=== PATIENT | female | born 1945 | race Caucasian/White ===

== ENCOUNTER → 2023-01-06 | Emergency (ER) | payer MEDICARE, OTHER ==
[~2023-01-06] VITALS: Ht 157.5 cm; Wt 81.6 kg
[~2023-01-06] MED LIST: CEFP200T14 PO; CEFTRIAXONE 1GM BAG (ER ONLY) 1 GM/50 ML PIGGYBACK IV ONE; CEFTRIAXONE 1GM BAG (ER ONLY) 50 ML IV ONE; CT SWABBABLE VALVE TRANS SET 1 EA INFUS.SET MC ONE; IOHEXOL-300 100 ML VIAL IV ONE; IV NS 0.9% 1,000 ML BAG IV ONE; IV NS 0.9% 250 ML IV ONE; MORPHINE SULFATE INJ 2 MG/ML DISP.SYRIN IV ONE; MORPHINE SULFATE INJ 4 MG/ML DISP.SYRIN ONE; ONDANSETRON HCL/PF 4 MG/2 ML VIAL IVP ONE; ONDANSETRON HCL/PF 4 MG/2 ML VIAL ONE
--- NOTE | 2023-01-06 04:55 | NUR ---
PT PROVIDED WITH WARM BLANKET FOR COMFORT.
--- NOTE | 2023-01-06 05:01 | NUR ---
BIBDAUGHTER FROM HOME. GEN ABD PAIN W/ NAUSEA ND VOMITING X2 DAYS. PT AAOX4, PLACED IN BED, VITALS CHECKED.
--- NOTE | 2023-01-06 05:01 | NUR ---
BLOOD DRAWN AND SENT TO LAB
--- NOTE | 2023-01-06 05:08 | NUR ---
URINE SPECIMEN COLLECTED AND SENT TO LAB.
--- NOTE | 2023-01-06 06:11 | NUR ---
CALLED LAB TO [employer], SPOKE TO JONY. HE SAID THERE IS NO KNITTED CLOTH EXAMINER TO [employer] SPECIM[employer]. TOLD JONY THAT WE NEED TO RUN THE BLOODS BECAUSE CT SCAN CANNOT BE PERFORM WITHOUT KNOWING THE BUN/CREA RESULT.
[2023-01-06 06:42] LABS: BACTERIA,URINE Moderate /HPF (None Seen); BILIRUBIN,URINE NEGATIVE (NEGATIVE); COLOR,URINE YELLOW (YELLOW); LEUKOCYTE ESTERASE ,URINE 2+ (NEGATIVE); NITRITE, URINE NEGATIVE (NEGATIVE); PROTEIN,URINE 2+ mg/dl (NEGATIVE); SQUAMOUS EPITHELIAL CELL,UR Few /HPF (None Seen); UGLUCOSE 2+ mg/dL (NEGATIVE); WBC,URINE 21-50 /HPF (0-3)
[2023-01-06 06:43] LABS: BASOPHILS # (AUTO) 0.1 K/uL (0.0-0.2); BASOPHILS % (AUTO) 0.7 % (0.0-2.0); HEMATOCRIT 39 % (33-45); HEMOGLOBIN 12.8 g/dL (11.5-14.8); LYMPHOCYTES # (AUTO) 0.4 K/uL (0.8-4.8); LYMPHOCYTES % (AUTO) 3.2 % (20.0-44.0); MEAN CORPUSCULAR HGB CONC 32 g/dl (31.0-36.0); MEAN CORPUSCULAR VOLUME 89 fL (82-100); MONOCYTES # (AUTO) 0.2 K/uL (0.1-1.30); MONOCYTES % (AUTO) 1.3 % (2.0-12.0); NEUTROPHILS % (AUTO) 94.8 % (43.0-81.0); PLATELET COUNT (AUTO) 226 K/uL (150-450); RED BLOOD CELL COUNT(AUTO) 4.42 MIL/uL (4.0-5.2); WHITE BLOOD COUNT (AUTO) 11.6 K/uL (4.3-11.0)
[2023-01-06 06:51] LABS: CALCIUM, SERUM 9.4 mg/dL (8.5-10.1); CREATININE 0.8 mg/dL (0.6-1.3); POTASSIUM 3.2 mmol/L (3.5-5.1)
[2023-01-06 07:05] LABS: ALBUMIN 3.4 g/dL (3.4-5.0); BILIRUBIN,DIRECT 0.4 mg/dL (0.0-0.2); BILIRUBIN,TOTAL 0.9 mg/dL (0.2-1.0); TOTAL PROTEIN, SERUM 8.2 g/dL (6.4-8.2)
[2023-01-06 09:54] VITALS: BP 109/54; TEMP 97.6
== END | disposition home or self-care (01) ==
LOC: ER 04:44
DX: R10.84 Generalized abdominal pain (principal); R11.2 Nausea with vomiting, unspecified; I10 Essential (primary) hypertension; E11.9 Type 2 diabetes mellitus without complications
CPT/HCPCS: 99285; 74177; 96365; 71045; 96375; 96361; 85025; 80048; 87086; 83605; 83690; 80076; 81001; 36415; J2270; J2405; J7030; J7050 ×2; A4223; J0696; Q9967

== ENCOUNTER 2023-09-25 10:02 | Emergency (ER) | payer MEDICARE, OTHER ==
[~2023-09-25] VITALS: Ht 162.6 cm; Wt 81.6 kg
[~2023-09-25 10:02] MED LIST changes: -CEFTRIAXONE 1GM BAG (ER ONLY) 1 GM/50 ML PIGGYBACK IV ONE; -CEFTRIAXONE 1GM BAG (ER ONLY) 50 ML IV ONE; -CT SWABBABLE VALVE TRANS SET 1 EA INFUS.SET MC ONE; -IOHEXOL-300 100 ML VIAL IV ONE; -IV NS 0.9% 1,000 ML BAG IV ONE; -IV NS 0.9% 250 ML IV ONE; -MORPHINE SULFATE INJ 2 MG/ML DISP.SYRIN IV ONE; -MORPHINE SULFATE INJ 4 MG/ML DISP.SYRIN ONE; -ONDANSETRON HCL/PF 4 MG/2 ML VIAL IVP ONE; -ONDANSETRON HCL/PF 4 MG/2 ML VIAL ONE
[2023-09-25 10:55] LABS: BASOPHILS # (AUTO) 0.1 K/uL (0.0-0.2); BASOPHILS % (AUTO) 0.6 % (0.0-2.0); EOSINOPHILS # (AUTO) 0.5 K/uL (0.0-0.7); HEMATOCRIT 40 % (33-45); HEMOGLOBIN 12.9 g/dL (11.5-14.8); LYMPHOCYTES # (AUTO) 2.8 K/uL (0.8-4.8); LYMPHOCYTES % (AUTO) 24.7 % (20.0-44.0); MEAN CORPUSCULAR HEMOGLOBIN 29 PG (26.0-33.0); MEAN CORPUSCULAR HGB CONC 33 g/dl (31.0-36.0); MEAN CORPUSCULAR VOLUME 89 fL (82-100); MONOCYTES # (AUTO) 0.4 K/uL (0.1-1.30); NEUTROPHILS # (AUTO) 7.5 K/uL (1.8-8.9); NEUTROPHILS % (AUTO) 66.7 % (43.0-81.0); PLATELET COUNT (AUTO) 303 K/uL (150-450); RED BLOOD CELL COUNT(AUTO) 4.44 MIL/uL (4.0-5.2); RED CELL DISTRIBUTION WIDTH 14.9 % (11.5-15.0); WHITE BLOOD COUNT (AUTO) 11.3 K/uL (4.3-11.0)
[2023-09-25 11:03] LABS: APPEARANCE,URINE SLIGHTLY CLOUDY (CLEAR); BILIRUBIN,URINE NEGATIVE (NEGATIVE); BLOOD, URINE 3+ Ery/uL (NEGATIVE); COLOR,URINE YELLOW (YELLOW); KETONES,URINE NEGATIVE (NEGATIVE); LEUKOCYTE ESTERASE ,URINE 1+ (NEGATIVE); NITRITE, URINE NEGATIVE (NEGATIVE); PH,URINE 5.5 (5.0-8.0); PROTEIN,URINE NEGATIVE (NEGATIVE); UGLUCOSE 2+ mg/dL (NEGATIVE); UROBILINOGEN,URINE 0.2 EU/dL (0.2)
[2023-09-25 11:08] LABS: ADD URINE CULTURE YES; BACTERIA,URINE Few /HPF (None Seen); SQUAMOUS EPITHELIAL CELL,UR Few /HPF (None Seen)
[2023-09-25 11:14] LABS: ALBUMIN 3.3 g/dL (3.4-5.0); BILIRUBIN,DIRECT 0.1 mg/dL (0.0-0.2); BILIRUBIN,TOTAL 0.2 mg/dL (0.2-1.0); CALCIUM, SERUM 9.2 mg/dL (8.5-10.1); CREATININE 0.6 mg/dL (0.6-1.3); POTASSIUM 3.9 mmol/L (3.5-5.1); TOTAL PROTEIN, SERUM 7.6 g/dL (6.4-8.2)
[2023-09-25] MEDS ORDERED: CIPR500T5 PO (14:22)
[2023-09-25 14:54] VITALS: BP 134/54; TEMP 98.7; O2SAT 98
== END 2023-09-25 14:54 | disposition home or self-care (01) ==
LOC: ER 10:25
DX: N39.0 Urinary tract infection, site not specified (principal); R10.9 Unspecified abdominal pain; I10 Essential (primary) hypertension; E11.8 Type 2 diabetes mellitus with unspecified complications; E88.09 Other disorders of plasma-protein metabolism, not elsewhere classified
CPT/HCPCS: 36415; 76856-TC; 80048-TC; 80076-TC; 81001; 83690-TC; 85025-TC; 87086-TC